=== PATIENT | female | born 1955 | race Caucasian/White ===

== ENCOUNTER → 2020-05-02 | Outpatient (CLI) | payer BC ==
[~2020-05-02] MED LIST: ACET-709 PO; AMOX1TAB64 PO; CIPR500T87 PO; ESCI20TA10 PO; FLUO40CA9 PO; FREM225S SC; MELO15TA24 PO; METR500T PO; NYST1000 PO; [UNRECOGNIZED DRUG - REMARK] SC
[2020-05-02 09:20] LABS: MICROSCOPIC NOT IND
[2020-05-02 09:28] LABS: BASOPHILS % (AUTO) 1 % (0-1); EOSINOPHILS % (AUTO) 5 % (1-7); LYMPHOCYTES % (AUTO) 27 % (22-44); MEAN CORPUSCULAR HEMOGLOBIN 30.2 pg (27.0-34.8); MEAN CORPUSCULAR HGB CONC 33.7 g/dL (32.4-35.8); MEAN PLATELET VOLUME 7.5 fL (7.4-10.4); MONOCYTES % (AUTO) 6 % (2-9); NEUTROPHILS % (AUTO) 61 % (42-75); PLATELET COUNT 307 x10^3/uL (130-400); RED BLOOD COUNT 4.73 x10^6/uL (3.82-5.3)
[2020-05-02 09:31] LABS: MD NO
[2020-05-02 09:33] LABS: ANION GAP 5 mmol/L (5-15); CALCIUM 8.9 mg/dL (8.5-10.1); CHLORIDE 110 mmol/L (98-107)
[2020-05-02 09:34] LABS: CREATININE 0.75 mg/dL (0.55-1.02)
== END | disposition home or self-care (01) ==
LOC: STAR 08:08
PROVIDERS: ATTEND Obstetrics & Gynecology
DX: Z01.812 Encounter for preprocedural laboratory examination (principal); Z20.822 Contact with and (suspected) exposure to COVID-19; I25.2 Old myocardial infarction; N81.10 Cystocele, unspecified; N81.6 Rectocele
CPT/HCPCS: 80048; 81003; 85025; 87635; 93005